=== PATIENT | male | born 1970 | race Caucasian/White ===

== ENCOUNTER 2020-05-31 06:20 | Emergency (ER) | payer OTHER, SELFPAY ==
--- NOTE | ~2020-05-31 | US_ITS ---
EXAMINATION: US scrotum doppler EXAM DATE: 05/31/2020 07:47 INDICATION: Right-sided testicular pain and swelling. TECHNIQUE: Multiple grayscale and Doppler images of the testicles and scrotum were obtained bilateral ly. There is no prior study for comparison. FINDINGS: Right testicle measures 3.3 x 2.8 x 2.8 cm and is morphologically normal. There is hypervascularity t o the right testicle and epididymis. There is small to moderate-sized septated right-sided hydrocele. There is a moderate-sized varicocele. Left testicle measures 3.9 x 2.7 x 2.9 cm and is morphologically normal. Low resistance Doppler flow confirmed. The epididymis is unremarkable. There is no hydrocele or varicocele. IMPRESSION: 1. Findings consistent with right-sided epididymoorchitis. Septated hydrocele. 2. Moderate right varicocele. Reviewed, dictated and finalized at location A. [facility]
[2020-05-31 06:29] VITALS: BP 167/91; PULSE 73; RESP 16; TEMP 35.5; O2SAT 100
--- NOTE | 2020-05-31 06:38 | PC.NURSE ---
Patient has swelling to right testicle going into penis---denies any pain or diff voiding
--- NOTE | 2020-05-31 07:03 | PC.NURSE ---
Report to Brianda AMEZCUA
[2020-05-31 07:49] VITALS: BP 154/80; PULSE 74; RESP 18; O2SAT 100
--- NOTE | 2020-05-31 08:04 | ED.GENADULT ---
HPI - General Adult General Chief complaint: Unspecified Stated complaint: testicle swelling Time Seen by Provider: 05/31/20 07:24 Source: patient Mode of arrival: ambulatory Limitations: no limitations History of Present Illness HPI narrative: 50 years old white male presented to the ED with right testicular pain and swelling for the last 48 hours. Patient denies any fever, chills, nausea, vomiting, trauma, urinary symptoms, radiation of pain, exposure to anybody known having COVID-19. Patient reports that he been moving and been lifting heavy furniture lately. Related Data Allergies Allergy/AdvReac Type Severity Reaction Status Date / Time metformin Allergy Mild Diarrhea Verified 05/31/20 07:49 Review of Systems Review of Systems: Narrative: CONSTITUTIONAL: Denies fever, chills, or sweats. EYES: Denies visual changes, redness, or discharge. ENT: Denies rhinorrhea, congestion, sore throat, or otalgia. CARDIOVASCULAR: Denies chest pain, palpitations, or edema. RESPIRATORY: Denies cough or dyspnea. GASTROINTESTINAL: Denies abdominal pain, nausea, vomiting, or diarrhea. GENITOURINARY: Denies dysuria or hematuria. SKIN: Denies rash or itching. MUSCULOSKELETAL: Denies back pain, joint pain, or myalgia. NEUROLOGIC: Denies headache, numbness, or weakness. PSYCHIATRIC: Denies anxiety or depression. [facility] Past Medical History Medical History (Updated 05/31/20 @ 08:10 by Mabel Stack MD) Diabetes Failed tendon repair R hand 1988 Hypertension Primary spontaneous pneumothorax hospitalize pnuemonia 1998 Surgical History Surgical History H/O hand surgery Family History Family History Grandparent Alcoholism, chronic Grandparent Bladder cancer Sibling Diabetes mellitus Cheshire's disease Father Hypertension Cheshire's disease Son Depression Anxiety Social History Social History Smoking status: Never smoker Alcohol intake: current Substance use: never Substance use type: does not use Additional occupation/education comments: RN Gender identity (if verbalized by the patient): Male Agree to blood products: Yes Exam Narrative: Exam Narrative: General appearance: Well-developed, well-nourished Skin: Normal color Head: Normocephalic, nontraumatic Chest and respiratory: Airway patent, no respiratory distress, no accessory muscle use Heart: Regular rate/rhythm Abdomen: Soft, nontender, no organomegaly, quiet bowel sounds, right testicular swelling, diffuse tenderness, no erythema, no discharge, no lymphadenopathy. Vascular: Normal peripheral pulses, normal capillary refill. Musculoskeletal: Normal range of motion, nontender back Neurologic: Alert and oriented ?3, [employer] is normal as tested, no gross motor deficit Course Course Emergency Course: Stable Vital Signs Vital signs: Vital Signs Temperature 35.5 C L 05/31/20 06:29 Pulse Rate 73 05/31/20 06:29 Respiratory Rate 16 05/31/20 06:29 Blood Pressure 167/91 H 05/31/20 06:29 Pulse Oximetry 100 05/31/20 06:29 Temperature 35.5 C L 05/31/20 06:29 Pulse Rate 74 05/31/20 07:49 Respiratory Rate 18 05/31/20 07:49 Blood Pressure 154/80 H 05/31/20 07:49 Pulse Oximetry 100 05/31/20 07:49 Medical Decision Making MDM Narrative Medical decision making narrative: Right testicular pain and swelling. Could be secondary to epididymitis, tumor, less likely torsion. Labs, UA, testicular ultrasound ordered. Further plan to follow Differential Diagnosis Differential Diagnosis: Epididy
== END 2020-05-31 08:23 | disposition home or self-care (01) ==
PROVIDERS: Emergency Provider Emergency Medicine; PCP Family Medicine
DX: N45.1 Epididymitis (principal); E11.9 Type 2 diabetes mellitus without complications; I10 Essential (primary) hypertension; Z79.84 Long term (current) use of oral hypoglycemic drugs
CPT/HCPCS: 76870; 93976; 99284